=== PATIENT | female | born 1960 | race Caucasian/White ===

== ENCOUNTER 2017-07-21 12:11 | Inpatient (IN) | END 2017-07-24 15:05 | disposition home or self-care (01) | DRG 417 | DX: K80.00 Calculus of gallbladder with acute cholecystitis without obstruction (principal); G92 Toxic encephalopathy; I10 Essential (primary) hypertension; E78.5 Hyperlipidemia, unspecified; T40.2X5A Adverse effect of other opioids, initial encounter; Y92.230 Patient room in hospital as the place of occurrence of the external cause; Z87.891 Personal history of nicotine dependence ==

== ENCOUNTER 2017-08-18 03:25 | Emergency (ER) | payer OTHER ==
[~2017-08-18] VITALS: Ht 165.1 cm; Wt 80.6 kg
[~2017-08-18 03:25] MED LIST: ALBU18HF INH; CIPR500T4 PO; DOCU-216 PO; LISI20TA11 PO; OXYC-438 PO; SIMV20TA2 PO
[2017-08-18 03:33] VITALS: Ht 165.1 cm; Wt 80.6 kg
[2017-08-18] MEDS ORDERED: ACETAMINOPHEN 325 MG TAB PO STA (03:40)
[2017-08-18] MEDS ORDERED: SOD CHLORIDE 0.9% 1,000 ML IV STA (04:00)
[2017-08-18] MEDS ORDERED: HYDROmorphONE 1 MG/ML SYG IV STA ×2 (04:11→05:39)
[2017-08-18] MEDS ORDERED: ONDANSETRON 4 MG INJ ONE (04:12)
[2017-08-18 04:34] LABS: ABNORMAL IP MESSAGE 1; BASOPHILS % 0.1 % (0.0-2.0); HEMATOCRIT 42.1 % (37.0-47.0); HEMOGLOBIN 14.5 g/dl (12.0-16.0); LYMPHOCYTES # 0.5 10^3/ul (0.8-2.9); LYMPHOCYTES % 3.4 % (15.0-51.0); MEAN CORPUSCULAR HEMOGLOBIN 29.6 pg (29.0-33.0); MEAN CORPUSCULAR HGB CONC 34.4 g/dl (32.0-37.0); MEAN CORPUSCULAR VOLUME 85.9 fl (82.0-101.0); MEAN PLATELET VOLUME 10.6 fl (7.4-10.4); MONOCYTE # 0.7 10^3/ul (0.3-0.9); MONOCYTES % 4.7 % (0.0-11.0); NEUTROPHIL # 13.3 10^3/ul (1.6-7.5); NEUTROPHILS % 91.5 % (39.0-77.0); PLATELET COUNT 195 10^3/UL (140-415); RED CELL DISTRIBUTION WIDTH 13.2 % (11.5-14.5); WHITE BLOOD COUNT 14.5 10^3/ul (4.8-10.8)
[2017-08-18 04:46] LABS: POSITIVE DIFF @See below
--- NOTE | 2017-08-18 04:48 | RADRPT ---
PROCEDURE: XR Chest. CLINICAL INDICATION: Sepsis TECHNIQUE: AP Portable chest. COMPARISON: No pertinent prior examinations were submitted for comparison. FINDINGS: The cardiomediastinal silhouette is magnified. The lung volumes are low with bibasilar atelectasis. The right hemidiaphragm is elevated. No focal consolidation, pleural effusion or pneumothorax is see n. There are degenerative changes in the spine. IMPRESSION: Elevated right hemidiaphragm and basilar atelectasis. Physician Chip Date Time Electronically viewed and signed by Physician Chip on 08/18/2017 04:47 CS/
--- NOTE | 2017-08-18 04:49 | RADRPT ---
PROCEDURE: CT Abdomen and pelvis without contrast. CLINICAL INDICATION: Abdominal pain. TECHNIQUE: CT scan of the abdomen and pelvis was performed on a multi-detector high-resolution CT scanner. Contiguous axial images were obtained from the lung bases to the ischial tuberosities wit hout intravenous contrast. Coronal and sagittal reformatted images were also obtained. Images were reviewed on the PACS workstation. One or more of the following dose reduction techniques were used: - Automated exposure control. - Adjustment of the mA and/or kV according to patient size. - Use of iterative reconstruction technique. Exam CTD/vol = 20.19 mGy. Total exam DLP = 1194.70 mGy-cm. COMPARISON: None. FINDINGS: Evaluation of the lung bases demonstrates minimal bibasilar atelectasis. Abdomen: The liver is normal in size and diffusely low in attenuation consistent with fatty infiltr ation. There is no focal mass or dilatation of the biliary tree. The patient status post cholecyst ectomy. The pancreas is edematous with mild surrounding stranding extending to the left anterior par arenal space. The spleen and bilateral adrenal glands are within normal limits. Bilateral kidneys are normal in size with no contour deforming mass identified. There is no radiopaque renal or urete ral calculus identified. There is no hydronephrosis or hydroureter. There is no retroperitoneal ad enopathy. The abdominal aorta is of normal caliber with scattered atherosclerotic calcifications. There is no abnormal bowel wall thickening or distension. There is no bowel obstruction or free air . A normal appendix is identified. There is descending and sigmoid diverticulosis without evidence of diverticulitis. There is no ascites. Pelvis: The bladder is unremarkable. The uterus and adnexa are within normal limits. There are bi lateral small inguinal hernias containing fat. There is no significant pelvic adenopathy or free fl uid. Evaluation of the osseous structures demonstrates no suspicious lytic or blastic lesion. IMPRESSION: Edematous pancreas with mild surrounding stranding compatible with pancreatitis. There is no fluid c ollection or pseudocyst formation identified. Fatty infiltration of the liver. Status post cholecystectomy. Descending and sigmoid diverticulosis without evidence of diverticulitis. Bilateral small inguinal hernias containing fat. Mild vascular calcifications reflective of atherosclerosis. .Romero Lee MD, MD Date Time Electronically viewed and signed by .Romero Lee MD, MD on 08/18/2017 04:49 .T/
[2017-08-18 04:58] LABS: ALANINE AMINOTRANSFERASE 180 IU/L (13-69); ALBUMIN 4.7 g/dl (3.3-4.9); ALBUMIN/GLOBULIN RATIO 1.34; ALKALINE PHOSPHATASE 170 IU/L (42-121); ANION GAP 21 (8-16); ASPARTATE AMINO TRANSFERASE 68 IU/L (15-46); BILIRUBIN,INDIRECT 1.2 mg/dl (0-1.1); BILIRUBIN,TOTAL 4.8 mg/dl (0.2-1.3); BLOOD UREA NITROGEN 23 mg/dl (7-20); CALCIUM 9.5 mg/dl (8.4-10.2); CARBON DIOXIDE 25 mmol/L (21-31); CHLORIDE 96 mmol/L (97-110); CREATININE 1.06 mg/dl (0.44-1.00); GLUCOSE 125 mg/dl (70-220); POTASSIUM 3.9 mmol/L (3.5-5.1); SODIUM 138 mmol/L (135-144); TOTAL PROTEIN 8.2 g/dl (6.1-8.1)
[2017-08-18 05:03] LABS: INR 1.14; PROTIME 14.6 Sec (12.2-14.2); PT RATIO 1.1
[2017-08-18 05:04] LABS: PARTIAL THROMBOPLASTIN TIME 28.1 Sec (25.0-35.0)
[2017-08-18 05:25] LABS: TROPONIN-I < 0.012 ng/ml (0.00-0.12)
[2017-08-18 08:17] LABS: CHOL/HDL RATIO 3.7 RATIO
[2017-08-18 08:21] VITALS: BP 124/88; PULSE 98; RESP 16; TEMP 98.2
--- NOTE | 2017-08-31 21:20 | ERD ---
ER Documentation Chief Complaint Chief Complaint AP x4 days. n/v, emesis x4 w/in last 24 hrs. rafaela [id number] ago. HPI 57-year-old female with abdominal pain for 4 days. Nausea and vomiting. Emesis 4 with the last 24 hours. She status post cholecystectomy 4 weeks ago. Vomiting per the patient is nonbilious. Non-feculent. No fevers no chills. No other current complaints. ROS All systems reviewed and are negative except as per history of present illness. Medications Home Meds Active Scripts Docusate Sodium (Dok) 100 Mg Capsule, 100 MG PO Q12H Y for CONSTIPATION, #60 CAP Prov:Ale BONNERNAOMIFILI F 07/23/17 Ciprofloxacin Hcl* (Ciprofloxacin Hcl*) 500 Mg Tablet, 500 MG PO BID for 7 Days , TAB Prov:NGHIA BONNER 07/23/17 Reported Medications Simvastatin (Simvastatin) 20 Mg Tablet, 20 MG PO DAILY, #30 TAB 07/21/17 Lisinopril* (Lisinopril*) 20 Mg Tablet, 20 MG PO DAILY, #30 TAB 07/21/17 Allergies Allergies: Coded Allergies: No Known Allergy (Unverified , 08/18/17) PMhx/Soc History of Surgery: Yes (lap rafaela 07/21/17) Anesthesia Reaction: No Hx Neurological Disorder: No Hx Respiratory Disorders: No Hx Cardiac Disorders: Yes (HTN) Hx Psychiatric Problems: No Hx Miscellaneous Medical Probl: No Hx Alcohol Use: Yes (BEER TWICE A WEEK) Hx Substance Use: Yes Hx Tobacco Use: Yes Smoking Status: Current every day smoker Physical Exam Physical Exam Const: [] Head: Atraumatic Eyes: Normal Conjunctiva ENT: Normal External Ears, Nose and Mouth. Neck: Full range of motion..~ No meningismus. Resp: Clear to auscultation bilaterally Cardio: Regular rate and rhythm, no murmurs Abd: Soft, non tender, non distended. Normal bowel sounds Skin: No petechiae or rashes Back: No midline or flank tenderness Ext: No cyanosis, or edema Neur: Awake and alert Psych: Normal Mood and Affect Results 24 hrs Laboratory Tests Test 08/18/17 04:13 08/18/17 06:13 White Blood Count 14.510^3/ul Red Blood Count 4.9010^6/ul Hemoglobin 14.5g/dl Hematocrit 42.1% Mean Corpuscular Volume 85.9fl Mean Corpuscular Hemoglobin 29.6pg Mean Corpuscular Hemoglobin Concent 34.4g/dl Red Cell Distribution Width 13.2% Platelet Count 17694^3/UL Mean Platelet Volume 10.6fl Neutrophils % 91.5% Lymphocytes % 3.4% Monocytes % 4.7% Eosinophils % 0.0% Basophils % 0.1% Nucleated Red Blood Cells % 0.0/100WBC Neutrophils # 13.310^3/ul Lymphocytes # 0.510^3/ul Monocytes # 0.710^3/ul Eosinophils # 0.010^3/ul Basophils # 0.010^3/ul Nucleated Red Blood Cells # 0.010^3/ul Prothrombin Time 14.6Sec Prothrombin Time Ratio 1.1 INR International Normalized Ratio 1.14 Activated Partial Thromboplast Time 28.1Sec Sodium Level 138mmol/L Potassium Level 3.9mmol/L Chloride Level 96mmol/L Carbon Dioxide Level 25mmol/L Anion Gap 21 Blood Urea Nitrogen 23mg/dl Creatinine 1.06mg/dl Glucose Level 125mg/dl Lactic Acid Level 1.6mmol/L 1.0mmol/L Calcium Level 9.5mg/dl Total Bilirubin 4.8mg/dl Direct Bilirubin 3.60mg/dl Indirect Bilirubin 1.2mg/dl Aspartate Amino Transf (AST/SGOT) 68IU/L Alanine Aminotransferase (ALT/SGPT) 180IU/L Alkaline Phosphatase 170IU/L Troponin I < 0.012ng/ml Total Protein 8.2g/dl Albumin 4.7g/dl Globulin 3.50g/dl Albumin/Globulin Ratio 1.34 Lipase < 10U/L Triglycerides Level 212mg/dl Cholesterol Level 142mg/dl LDL Cholesterol, Calculated 62mg/dl HDL Cholesterol 38mg/dl Cholesterol/HDL Ratio 3.7RATIO Current Medications Medications (Trade) Dose Ordered Sig/Raj Route PRN Reason Start Time Stop Time Status Last Admin Dose Admin Acetaminophen 650 mg 650 mg ONCE STAT PO 08/18/17 03:40 08/18/17 03:41 DC 08/18/17 04:17 Sodium Chloride (NS) 1,000 ml @ 1,000 mls/hr Q1H STAT IV 08/18/17 04:00 08/18/17 04:59 DC 08/18/17 04:17 Hydromorphone HCl (Dilaudid) 1 mg ONCE STAT IV 08/18/17 04:11 08/18/17 04:12 DC 08/18/17 04:17 Ondansetron HCl (Zofran Inj) 4 mg STK-MED ONCE .ROUTE 08/18/17 04:12 08/18/17 04:13 DC Hydromorphone HCl (Dilaudid) 1 mg ONCE STAT IV 08/18/17 05:39 08/18/17 05:42 DC 08/18/17 05:35 Procedures/MDM Medical decision-makin-year-old female with evidence of acute pancreatitis. Patient will need to be admitted. Spoke to Dr. Levine of [facility]. Patient is capitated to [facility] with transfer there. Departure Diagnosis: Primary Impression: Pancreatitis Chronicity: acute Pancreatitis type: unspecified pancreatitis type Acute pancreatitis complication: unspecified Qualified Code: K85.90 - Acute pancreatitis, unspecified complication status, unspecified pancreatitis type Condition: Stable KRISTINE ANGEL Aug 31, 2017 21:20
== END 2017-08-18 08:25 | disposition short-term general hospital (02) ==
LOC: E/R 03:25
DX: K85.90 Acute pancreatitis without necrosis or infection, unspecified (principal); I10 Essential (primary) hypertension; F17.210 Nicotine dependence, cigarettes, uncomplicated
CPT/HCPCS: 36415; 71010; 74176; 80053; 80061; 83605; 83690; 84484; 85025; 85610; 85730; 87040; 93005; 96374; 96376; J1170; J2405; J7030; Z7502; Z7610